=== PATIENT | female | born 1990 | race Hispanic/Latino ===

== ENCOUNTER 2020-11-18 12:23 | Observation (INO) | payer OTHER, SELFPAY ==
[2020-11-18] VITALS (40 sets, daily range): BP systolic 131–185; BP diastolic 70–117; PULSE 69–114; RESP 13–25; TEMP 35.5–37; O2SAT 74–100; BMI 23.0
--- NOTE | 2020-11-18 13:01 | ECG_ITS ---
Measurements Intervals [place] Rate: 69 P: 43 IN: 144 QRS: 42 QRSD: 77 T: 46 QT: 373 QTc: 402 Interpretive Statements SINUS RHYTHM BASELINE ARTIFACT- I, II, III NORMAL ECG Electronically Signed On 11-19-2020 13:15:03 CDT by Neil Rangel D.O.
[2020-11-18 13:18] LABS: INR 0.9; Prothrombin Time 12.1 Seconds (11.1-14.7)
--- NOTE | 2020-11-18 13:19 | ED.RECABL ---
HPI - Recheck/Abnormal Lab/Rx General Chief Complaint: Recheck/Abnormal Lab/Rx <Nicolette Ash PA-C - Last Filed: 11/18/20 17:06> Stated Complaint: K+ 7.1 <Nicolette Ash PA-C - Last Filed: 11/18/20 17:06> Time Seen by Provider: 11/18/20 13:01 <DREA Franks Last Filed: 11/18/20 17:06> Source: patient <DREA Franks Last Filed: 11/18/20 17:06> Mode of arrival: ambulatory <DREA Franks Last Filed: 11/18/20 17:06> Limitations: no limitations <DREA Franks Last Filed: 11/18/20 17:06> History of Present Illness HPI narrative: This is a 30-year-old female that presents to the emergency department for hyperkalemia. Reports she has history of ESRD and is on hemodialysis. She does dialysis Monday, and Saturdays. At dialysis yesterday she had a routine blood draw. This morning she was called and told her potassium was high and to go to the ER. She is not symptomatic with this. She did not take her blood pressure medication this morning. <DREA Franks Last Filed: 11/18/20 17:06> Related Data Home Medications: Home Medications Medication Instructions Recorded Confirmed amlodipine 5 mg PO DAILY 11/18/20 11/18/20 ferrous gluconate 324 mg PO DAILY 11/18/20 11/18/20 sevelamer carbonate 800 mg PO TIDWM 11/18/20 11/18/20 <DREA Franks Last Filed: 11/18/20 17:06> Allergies/Adverse Reactions: Allergies Allergy/AdvReac Type Severity Reaction Status Date / Time NSAIDS (Non-Steroidal Allergy Unknown Unknown Verified 11/18/20 13:03 Anti-Inflamma Penicillins Allergy Unknown RASH Verified 11/18/20 13:03 <DREA Franks Last Filed: 11/18/20 17:06> Review of Systems Review of Systems: CONSTITUTIONAL: Denies fever CARDIOVASCULAR: Denies chest pain, palpitations RESPIRATORY: Denies dyspnea. GASTROINTESTINAL: Denies abdominal pain, vomiting <Nicolette Ash PA-C - Last Filed: 11/18/20 17:06> All systems reviewed & are unremarkable except as noted in HPI and below <Nicolette Ash PA-C - Last Filed: 11/18/20 17:06> PMFSH Past Medical History Medical History: Medical History (Updated 11/18/20 @ 21:00 by Deborah Frye NP) ESRD on hemodialysis Monday History of end stage renal disease History of hypertension History of lupus HTN (hypertension), malignant Lupus <Nicolette Ash PA-C - Last Filed: 11/18/20 17:06> Surgical History Surgical History: Surgical History (Updated 11/18/20 @ 21:00 by Deborah Frye NP) S/P dialysis catheter insertion The patient has a peritoneal catheter and a temper catheter right upper chest. Nonfunctioning AV fistula to the right upper arm <Nicolette Ash PA-C - Last Filed: 11/18/20 17:06> Family History Family History: Family History Grandparent Diabetes mellitus <Nicolette Ash PA-C - Last Filed: 11/18/20 17:06> Social History Social History: Social History (Updated 11/18/20 @ 21:02 by Deborah Frye NP) Social History: The patient has 2 children. She currently lives with her boyfriend's mom. She lives with her boyfriend who works. The patient is unable to work at this time. The patient does not have a durable power trade mark attorney for healthcare. The patient is lifelong nonsmoker. She does not use any marijuana or illicit drugs. Code status full code Smoking status: Never smoker Alcohol intake: never Substance use: never Spiritual care concerns: No <DREA Franks Last Filed: 11/18/20 17:06> Exam Narrative: GENERAL: Well-appearing, well-nourished, and in no acute distress. HEAD: Normocephalic, atraumatic. EYES: EOMI. ENT: Mucous membranes moist. CHEST: Clear to auscultation. No respiratory distress. No wheezes rales or rhonchi HEART: Regular rate and rhythm. No murmur heard. Normal peripheral pulses.
[2020-11-18 13:26] LABS: Basophils Percent Auto 0.3 % (0.2-1.2); Eosinophils Absolute Auto 0.1 K/mm3 (0-0.3); Eosinophils Percent Auto 1.3 % (0-4.4); Hematocrit 21.7 % (37.0-47.0); Hemoglobin 7.1 g/dL (12.0-15.0); Immature Granulocyte Absolute 0.02 K/mm3 (0.00-0.031); Immature Granulocyte Percent A 0.3 % (0-0.5); Lymphocytes Absolute Auto 0.71 K/mm3 (0.9-3.2); Lymphocytes Percent Auto 11.9 % (18.3-44.2); Mean Corpuscular HGB Conc 32.7 g/dl (32-36); Mean Corpuscular Hemoglobin 28.7 pg (26-34); Mean Corpuscular Volume 87.9 fl (80-100); Mean Platelet Volume 9.1 fl (7.4-10.4); Monocytes Absolute Auto 0.6 K/mm3 (0.1-0.6); Monocytes Percent Auto 9.4 % (2.6-8.5); Neutrophils Absolute Auto 4.6 K/mm3 (1.3-6.7); Neutrophils Percent Auto 76.8 % (45.5-73.1); Platelet Count Result 231 k/mm3 (150-375); Red Blood Count 2.47 M/mm3 (4.2-5.4); Red Cell Distribution Width 13.2 % (11.5-14.5)
[2020-11-18 13:43] LABS: Alanine Aminotransferase 18 U/L (4-35); Albumin Level 4.6 g/dL (3.5-5.1); Alkaline Phosphatase 92 U/L (38-126); Anion Gap 19 mmol/L (8-16); Aspartate Amino Transferase 21 U/L (14-36); Bilirubin,Total 0.4 mg/dL (0.2-1.3); Blood Urea Nitrogen 115 mg/dL (7-17); Carbon Dioxide 20 mmol/L (22-30); Chloride 97 mmol/L (98-107); Glucose 85 mg/dL (65-110); Potassium 7.4 mmol/L (3.4-5.0); Sodium 136 mmol/L (137-145)
[2020-11-18 13:53] LABS: Estimated CRCL calculation 3 ml/min; Estimated Glomerular Filt Rate 2
[2020-11-18] MEDS: SODIUM BICARBONATE 8.4% 50 MEQ/50 ML SYRINGE IV PUSH (14:13)
[2020-11-18] MEDS: CALCIUM GLUCONATE 1,000 MG/10 ML VIAL 1000 MG IV PUSH (14:17)
[2020-11-18] MEDS: DEXTROSE 50% 25 GM/50 ML SYRINGE IV PUSH (14:19)
[2020-11-18] MEDS: INSULIN HUMAN REGULAR (*BKC) 100 UNITS/ML 10 UNITS IV PUSH (14:22)
[2020-11-18] MEDS: amLODIPine BESYLATE 5 MG TABLET PO (14:31)
--- NOTE | 2020-11-18 15:56 | PM.CNNEP ---
Assessment and Plan Assessment and plan (1) Anemia: Code(s): D64.9 - Anemia, unspecified Status: Acute (2) ESRD on hemodialysis: Code(s): N18.6 - End stage renal disease; Z99.2 - Dependence on renal dialysis Status: Chronic (3) Lupus: Code(s): M32.9 - Systemic lupus erythematosus, unspecified Status: Chronic (4) HTN (hypertension), malignant: Code(s): I10 - Essential (primary) hypertension Status: Chronic (5) Acute hyperkalemia: Code(s): E87.5 - Hyperkalemia Status: Acute (6) Non-adherence to medical treatment: Code(s): Z91.19 - Patient's noncompliance with other medical treatment and regimen Status: Inactive (7) Non-adherence to medical treatment: Code(s): Z91.19 - Patient's noncompliance with other medical treatment and regimen Status: Acute Assessment and Plan: young female of descent with esrd due to lupus- 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 She has remained severely non-compliant/ non-adherent only coming to 2-4 dialysis treatments per month which did not improve when she was allowed to come only twice a week bc of her multiple missing abscences. She showed up to dialysis yesterday and unfortunately her HD line was not working well - TPA was infused and labs were sent. the potassium level came back extremely high > 7 so she was sent to the ER. I had seen her earlier at the dialysis center yesterday and started her on Lokelma but noted yesterday and today that she has volume overload, is pale, and has skin nodules of hyperphosphatemia plan 1. HD TODAY- WILL RETRY TPA BUT PT MAY NEED NEW DIALYSIS ACCESS. AN ALTERNATIVE, SHE COULD HAVE A TRIAL AT PERITONEAL DIALYSIS BUT WITH HER NOT TRULY HAVING HER INTRA-ABDOMINAL CAVITY EPITHELIALIZED WITH CONTINUOUS PERITONEAL DIALYSIS AND JUST 1 TRAINIINAG EXCHANGE IT IS LIKELY THAT THE PD LINE DOESN'T WORK ALSO. 2. HD TODAY AND TOMORROW AND ALSO MONDAY. 3. TRANSFUSE NEEDED. 4. LONG D/W PT TO CONTROL POTASSIUM ADN PHOSPHORUS. 5. UNFORTUNATELY IT DOESN'T APPEAR THERE IS AN AVAILABLE SURGEON HERE AT [facility] WITH THE SURGICAL FAMILIARITY TO D/C HER PD LINE- WE HAVE NOT BEEN ABLE TO GET THIS ACCOMPLISHED AN OUTPATIENT. SHE SAW THE SURGICAL ARTS GROUP AT [facility] BUT ENDED UP BEING OUT OF THEIR NETWORK. History of Present Illness Reason for Consult Consult date: 11/24/20 Chief Complaint Chief complaint: hyperkalemia,esrd Review of Systems Review of Systems: weak and with some sob with lying flat and walking. diffuse puritis. weakness of legs. Nausea and metallic taste- all symptoms c/w uremia. [facility] Past Medical History Medical History (Updated 11/24/20 @ 04:23 by Heaven Andrews MD) ESRD on hemodialysis Monday History of end stage renal disease History of hypertension History of lupus HTN (hypertension), malignant Lupus Non-adherence to medical treatment Non-adherence to medical treatment Surgical History Surgical History (Updated 11/18/20 @ 21:00 by Deborah Frye NP) S/P dialysis catheter insertion The patient has a peritoneal catheter and a temper catheter right upper chest. Nonfunctioning AV fistula to the right upper arm Family History Family History Grandparent Diabetes mellitus Social History Social History (Updated 11/18/20 @ 21:02 by Deborah Frye NP) Social History: The patient has 2 children. She currently lives with her boyfriend's mom. She lives with her boyfriend who works. The patient is unable to work at this time. The patient does not have a durable power attorney general for healthcare. The patient is lifelong nonsmoker. She does not use any marijuana or illicit drugs. Code status full code Smoking status: Never smoker Alcohol intak
--- NOTE | 2020-11-18 17:25 | ADMGEN ---
This patient, Amelia Mcneill, was admitted to Intensive Care Unit-8. Patient/family oriented to hospital policies and general routines including ID bracelet, bed and alarms, visiting hours, pain management, procedures, bathroom and other care routines, personal items, smoking policy, room service/diet, and visiting hours. Information on how to activate the Rapid Response Team has been discussed. Patient/Family are encouraged to report perceived risks to care and to ask questions if they do not understand what they are told or what they should do.
[2020-11-18 17:49] LABS: Add Urine Microscopic? YES; Appearance Urine Clear (Clear); Bilirubin Urine Negative (Negative); Blood Urine Negative (Negative); Color Urine Colorless (Yellow); Glucose Urine UA 2+ mg/dL (Negative); Ketones Urine Negative (Negative); Leukocyte Esterase Ur Negative LEU/UL (Negative); Nitrate Urine Negative (Negative); Protein Urine 3+ mg/dL (Negative); RBC Urine 0-2 /hpf (0-2); Specific Grav Ur 1.008 (1.001-1.035); Squamous Epithelial Cell Urine Rare /hpf (Few); Urobilinogen Urine Negative mg/dL (<2.0); WBC Urine 0-3 /hpf
[2020-11-18 18:57] LABS: INR 1.1; Prothrombin Time 13.7 Seconds (11.1-14.7)
[2020-11-18 18:58] LABS: Partial Thromboplastin Time 33.3 SECONDS (22.3-36.8)
[2020-11-18] MEDS: IRON SUCROSE COMPLEX 100 MG in SODIUM CHLORIDE 0.9% IV 50 ML 220 MG IVPB (19:00)
[2020-11-18] MEDS: EPOETIN ALFA-EPBX 20,000 UNITS/ML VIAL 20000 UNITS IV PUSH (19:30)
[2020-11-18 20:11] LABS: Hepatitis B Surface Antigen Negative (Negative)
[2020-11-18 20:17] LABS: HAV RESULT Negative (Negative); Hepatitis B Core IgM Result Negative (Negative)
[2020-11-18 20:29] LABS: Hepatitis C Virus Antibody Negative (Negative)
[2020-11-18 20:35] LABS: Hepatitis B Surface Anti Res Positive
[2020-11-18] MEDS: hydrALAZINE HCL 20 MG/ML VIAL 10 MG IV PUSH (20:46)
--- NOTE | 2020-11-18 20:51 | PM.IMHP ---
H&P: HPI History of Present Illness Date/Time: 11/18/20 20:51 this is a 30-year-old female patient who has a history of end-stage renal disease secondary to her lupus. The patient tells me that she has been on dialysis for over a year now. She tried peritoneal dialysis but could not store the boxes of fluid at her house. The patient had a right AV fistula but he went bad. The patient now has a temporary dialysis catheter to her right upper chest. The patient tells me that she has dialysis scheduled Monday and Saturdays. However the patient has a 3-year-old at home is having difficulty finding a cleat thrower. The patient stated that a week ago she went to dialysis and then she went yesterday however about an hour into the dialysis her catheter failed her. The patient stated that they put something into her catheter and then waited a few minutes. However they still were not able to user catheter yesterday. She stated somebody from venous access was supposed to call her today but she did receive the phone call. The patient had a blood draw at dialysis yesterday and she was told to come to the emergency room because her potassium was high. She did not take her blood pressure medicine at this time and she is asymptomatic. The patient's potassium was noted to be 7.4. Sodium 136. Chloride 97. BUN 115 creatinine 18.9 with a GFR of 2. The patient stated that she had been on a renal transplant list but was kicked off due to her noncompliance with dialysis. Dr. Andrews is her geology teacher. I did talk to Dr. Andrews concerning the patient's potassium and difficulty with her catheter. I spoke with the hemodialysis nurse Francois several times concerning the patient. Francois was able to get 1 of the ports to work and was able to call a dialysis nurse to come in and do dialysis treatment. The patient was able to have the treatment completed. The patient has a peritoneal dialysis catheter intact and intact right upper chest dialysis catheter. She has a repeat renal function. The patient is being admitted to observation status on the date of service of 11/18/2020. Chief Complaint: Hyperkalemia Review of Systems Review of Systems: All systems reviewed & are unremarkable except as noted in HPI and below Constitutional: Constitutional: Reports as per HPI and Reports no additional constitutional complaints Eyes: Eyes: Reports as per HPI and Reports no additional eye complaints ENT: Reports system reviewed and no additional complaints, except as documented and Reports Normal hearing present Cardiovascular: Cardiovascular: Reports no additional cardiovascular complaints Respiratory: Respiratory: Reports no additional respiratory complaints and Reports no additional respiratory complaints Gastrointestinal: Gastrointestinal: Reports as per HPI and Reports no additional gastrointestinal complaints Musculoskeletal: Musculoskeletal: Reports no additional musculoskeletal complaints Integumentary/Breasts: Skin/Breast: Reports system reviewed and no additional complaints, except as docu and Reports as per HPI Neurologic: Reports system reviewed and no additional complaints, except as documented, Reports as per HPI and Reports Normal hearing present Psychiatric: Psychiatric: Reports no additional psychiatric complaints and Reports as per HPI Endocrine: Endocrine: Reports no additional endocrine complaints Hematologic/Lymphatic: Hematologic/Lymphatic: Reports no additional hematologic/lymphatic complaints Allergic/Immunologic: Allergic/Immunologic: Reports no additional allergic/immunologic complaints [facility] Past Medical History Medical History (Updated 11/18/20 @ 21:00 by Deborah Frye NP) ESRD on hemodialysis Monday History of end stage renal disease History of hypertension History of lupus HTN (hypertension), malignant Lupus Surgical History Surgical History (Updated 11/18/20 @ 21:00 by Deborah Frye NP) S/P dialys
[2020-11-18 23:10] LABS: Albumin Level 4.2 g/dL (3.5-5.1); Anion Gap 12 mmol/L (8-16); Blood Urea Nitrogen 37 mg/dL (7-17); Calcium 8.7 mg/dL (8.4-10.2); Carbon Dioxide 28 mmol/L (22-30); Chloride 97 mmol/L (98-107); Estimated CRCL calculation 8 ml/min; Estimated Glomerular Filt Rate 7; Glucose 157 mg/dL (65-110); Phosphorus 5.2 mg/dL (2.5-4.5); Potassium 4.1 mmol/L (3.4-5.0); Sodium 137 mmol/L (137-145)
[2020-11-18] MEDS: ACETAMINOPHEN 325 MG TABLET 650 MG PO (23:52)
[2020-11-18] MEDS: SALINE 0.65% NAS SOLN 44 ML BTL 1 SPRAY NASAL (23:53)
[2020-11-19] VITALS (28 sets, daily range): BP systolic 117–168; BP diastolic 55–116; PULSE 70–98; RESP 15–21; TEMP 35.5–37.1; O2SAT 98–100
[2020-11-19 04:58] LABS: Basophils Percent Auto 0.3 % (0.2-1.2); Eosinophils Absolute Auto 0.1 K/mm3 (0-0.3); Eosinophils Percent Auto 0.7 % (0-4.4); Hematocrit 21.1 % (37.0-47.0); Immature Granulocyte Absolute 0.02 K/mm3 (0.00-0.031); Immature Granulocyte Percent A 0.3 % (0-0.5); Lymphocytes Absolute Auto 0.84 K/mm3 (0.9-3.2); Lymphocytes Percent Auto 12.1 % (18.3-44.2); Mean Corpuscular HGB Conc 32.2 g/dl (32-36); Mean Corpuscular Hemoglobin 28.5 pg (26-34); Mean Corpuscular Volume 88.3 fl (80-100); Mean Platelet Volume 8.9 fl (7.4-10.4); Monocytes Absolute Auto 0.8 K/mm3 (0.1-0.6); Monocytes Percent Auto 10.8 % (2.6-8.5); Neutrophils Absolute Auto 5.2 K/mm3 (1.3-6.7); Neutrophils Percent Auto 75.8 % (45.5-73.1); Platelet Count Result 205 k/mm3 (150-375); Red Blood Count 2.39 M/mm3 (4.2-5.4); Red Cell Distribution Width 12.9 % (11.5-14.5); White Blood Count 6.9 K/mm3 (4.5-10.0)
[2020-11-19 05:07] LABS: Hemoglobin 6.8 g/dL (12.0-15.0)
[2020-11-19 05:21] LABS: Alanine Aminotransferase 17 U/L (4-35); Albumin Level 4.1 g/dL (3.5-5.1); Alkaline Phosphatase 78 U/L (38-126); Anion Gap 13 mmol/L (8-16); Aspartate Amino Transferase 21 U/L (14-36); Bilirubin,Total 0.3 mg/dL (0.2-1.3); Blood Urea Nitrogen 39 mg/dL (7-17); CRP 1.3 mg/dL (<1.0); Carbon Dioxide 27 mmol/L (22-30); Chloride 99 mmol/L (98-107); Estimated CRCL calculation 7 ml/min; Estimated Glomerular Filt Rate 5; Glucose 86 mg/dL (65-110); Lipase 143 U/L (23-300); Magnesium 1.9 mg/dL (1.6-2.3); Potassium 4.9 mmol/L (3.4-5.0); Sodium 139 mmol/L (137-145)
[2020-11-19] MEDS: FERROUS GLUCONATE 324 MG TABLET PO (08:32)
[2020-11-19] MEDS: SEVELAMER CARBONATE 800 MG TABLET PO ×2 (08:32→16:22)
[2020-11-19] MEDS: amLODIPine BESYLATE 5 MG TABLET PO (08:32)
[2020-11-19] MEDS: SODIUM CHLORIDE 0.9% IV 1,000 ML 100 ML IV CONT (11:00)
--- NOTE | 2020-11-19 11:29 | PM.IMPN ---
Progress Note: A&P Assessment and Plan (1) Acute hyperkalemia: Code(s): E87.5 - Hyperkalemia Status: Acute Assessment and Plan: Patient sent to the emergency room for hyperkalemia. Potassium here was 7.4. The patient underwent emergent dialysis and her dialysis catheter to the right upper chest was working although the patient may still need to follow-up with vascular access. She has a nonfunctioning AV fistula to the right upper arm. Recheck potassium was normal. Patient states that her mother is now available baby-sitting which will hopefully improve her compliance with dialysis. Continue renal dialysis diet. (2) ESRD on hemodialysis: Code(s): N18.6 - End stage renal disease; Z99.2 - Dependence on renal dialysis Status: Chronic Assessment and Plan: Patient is noncompliant at times due to her lack of access for a sitter. She has a peritoneal dialysis catheter in place but no abdominal pain to suggest peritonitis. Currently undergoing dialysis through right upper chest tunneled catheter. There was problems with the function of the catheter but this has been treated and is now improved. She received dialysis yesterday and will receive dialysis again today. This will put her back on schedule. Appreciate Nephrology input. (3) Anemia: Code(s): D64.9 - Anemia, unspecified Status: Acute Assessment and Plan: Hemoglobin 7.1 on admission. Repeat hemoglobin this morning is 6.8. Some of this is chronic related to her ESRD and lupus. Unclear if there is an acute component of blood loss but no evidence of acute blood loss clinically. Will check iron studies, ect. Check stool guaiac. Check bedside test. Transfusion has been ordered. Add pepcid (4) Lupus: Code(s): M32.9 - Systemic lupus erythematosus, unspecified Status: Chronic Assessment and Plan: Patient has a history of lupus which is probably related to her anemia, renal failure and may be the joint pain. She is not currently on treatment for her lupus at this time. Will defer to her rheumatology for further treatment. (5) HTN (hypertension), benign: Code(s): I10 - Essential (primary) hypertension Status: Acute Assessment and Plan: Patient's blood pressure was reviewed on 11/19 Blood pressure was elevated admission probably fluid overload. Blood pressure has improved with dialysis. CP could be related to elevated BP, fluid overload and/or from the catheter. Will moniotr for recurrence of CP. Will continue current medications with Norvasc. (6) DVT prophylaxis: Code(s): Z29.9 - Encounter for prophylactic measures, unspecified Status: Acute Assessment and Plan: SCDs in light of the anemia Subjective Date/time seen: 11/19/20 11:29 Interval history: 30yo female with SLE and ESRD here for hyperkalemia. Patient states she was hospitalized at [facility] recently was discharged on November 07. She normally gets dialysis Monday, and Monday however she was unable to do dialysis for the last week because of baby-sitting issues. She did go for dialysis on November 17 but they had difficulty with dialysis due to catheter problems. She has a peritoneal dialysis catheter in place but could not continue with dialysis in this way. She had a fistula placed but that is now nonfunctioning so currently she has a temporary dialysis catheter right upper chest. She still makes urine. She states that her mother is now available to help with baby-sitting which will help allow her to be more compliant. She was noted to be hyperkalemic and was sent to the emergency room here for this reason. She denies any palpitations or chest pain. She did have chest pain last week that was tight but feels it may have been related to the catheter the right upper chest. She denies any calf pain or pedal edema. She got tested for COVID last week and was nega
[2020-11-19 12:34] LABS: Lactate Dehydrogenase 467 U/L (313-618)
[2020-11-19 13:07] LABS: Iron 193 ug/dL (37-170)
[2020-11-19 13:16] LABS: Percent Iron Saturation 99 % (20-50)
[2020-11-19 13:17] LABS: SPREG INTERNAL CONTROL Positive; Serum Qual hCG Negative
[2020-11-19 13:36] LABS: Folic Acid 7.1 ng/mL (2.76->20)
--- NOTE | 2020-11-19 15:44 | PM.DS ---
DS: Admitting Diagnosis Discharge Date 11/19/20 Admitting Diagnosis Hyperkalemia DS: Discharge Diagnosis Discharge Diagnosis (1) Acute hyperkalemia: Code(s): E87.5 - Hyperkalemia Status: Acute Assessment and Plan: Patient sent to the emergency room for hyperkalemia. Potassium here was 7.4. The patient underwent emergent dialysis and her dialysis catheter to the right upper chest was working although the patient may still need to follow-up with vascular access. She has a nonfunctioning AV fistula to the right upper arm. Recheck potassium was normal. Patient states that her mother is now available for baby-sitting which will hopefully improve her compliance with dialysis. Continue renal dialysis diet. Appreciate Nephrology input. (2) ESRD on hemodialysis: Code(s): N18.6 - End stage renal disease; Z99.2 - Dependence on renal dialysis Status: Chronic Assessment and Plan: Patient is noncompliant at times due to her lack of access for a partner integration planner. She has a peritoneal dialysis catheter in place but no abdominal pain to suggest peritonitis. Currently undergoing dialysis through right upper chest tunneled catheter. There was problems with the function of the catheter but this has been treated and is now improved. She received dialysis yesterday and again today. This has put her back on schedule. Appreciate Nephrology input. Patient voices understanding that she will need dialysis on Monday11/21/2020 (3) Anemia: Code(s): D64.9 - Anemia, unspecified Status: Acute Assessment and Plan: Hemoglobin 7.1 on admission. Repeat hemoglobin this morning is 6.8. Some of this is chronic related to her ESRD and lupus. Unclear if there is an acute component of blood loss but no evidence of acute blood loss clinically. B12/Folate normal. Iron studies noted and felt to be lab error ; this was drawn with dialysis. We did stop her iron. test negative. Transfusion was ordered with dialysis. We added pepcid (4) Lupus: Code(s): M32.9 - Systemic lupus erythematosus, unspecified Status: Chronic Assessment and Plan: Patient has a history of lupus which is probably related to her anemia, renal failure and may be the joint pain. She is not currently on treatment for her lupus at this time. Will defer to her rheumatology for further treatment. (5) HTN (hypertension), benign: Code(s): I10 - Essential (primary) hypertension Status: Acute Assessment and Plan: Patient's blood pressure was monitored closely. Blood pressure was elevated on admission probably fluid overload. Blood pressure has improved with dialysis. Chest pain before admission could be related to elevated BP, fluid overload and/or from the catheter. No recurrence of chest pain here. We continued current medications with Norvasc. DS: Summary Hospital Course Reason for hospitalization: 30yo female with SLE and ESRD here for hyperkalemia. Please see H&P for details. Hospital Course: Please see above for details of hospital course. Status at Discharge Cognitive/behavioral status at discharge: Stable Time Spent with Patient Time attestation: Total time spent providing and/or coordinating discharge services: 35 minutes Time spent: Greater than 30 minutes Exam Narrative: AF 98.6 146/69 71 16 99 % ra Gen - NARD Chest - CTA bilaterally, nml RR. Right upper chest tunneled catheter with dressing that is clean and dry CV - RRR S1/S2; Tele showing no signifincat dysrhythmias Abd - Soft, NT/ND, Positive BS. PD catheter site clean/dry/intact Ext - No pedal edema. Negative Janice's; no cords. 2+ DP bilaterally. No active synovitis to the small joints of the hands or wrists. Neuro - Alert and oriented. Nonfocal exam. Psych - Nml mood and affect Skin - Warm and dry DS: Data Data Completed and Pending Labs on day of discharge: Labs from last 24 hours 10
[2020-11-19] MEDS: FAMOTIDINE 20 MG TABLET PO (16:22)
--- NOTE | 2020-11-19 17:56 | PC.NURSE ---
Patient discharged to home. Oriented x3, no complaints of chest pain/shortness of breath at discharge. Prescriptions transmitted to pharmacy.
[2020-11-21 19:35] LABS: Hepatitis B Core Ab Total Nonreactive (Nonreactive)
--- NOTE | 2020-11-26 12:36 | PC.NURSE ---
HEP B core is non-reactive.
== END 2020-11-19 18:00 | disposition home or self-care (01) ==
LOC: ANHED 15:47 → ANHICU 16:13
PROVIDERS: Emergency Medicine; Nurse Practitioner; Physician Assistant; Admitting Provider Internal Medicine; Emergency Provider Emergency Medicine; PCP Internal Medicine Nephrology; Visit Provider Internal Medicine
DX: E87.5 Hyperkalemia (principal); N18.6 End stage renal disease; Z99.2 Dependence on renal dialysis; M32.9 Systemic lupus erythematosus, unspecified; I12.0 Hypertensive chronic kidney disease with stage 5 chronic kidney disease or end stage renal disease; D64.9 Anemia, unspecified; Z91.19 Patient's noncompliance with other medical treatment and regimen; D63.1 Anemia in chronic kidney disease; R07.89 Other chest pain
CPT/HCPCS: 36415; 36430; 80053; 80069; 80074; 81001; 82607; 82728; 82746; 83540; 83550; 83615; 83690; 83735; 84443; 84703; 85025; 85610; 85730; 86140; 86704; 86706; 86850; 86900; 86901; 86920; 87340; 93005; 96374; 96375; 99285; A9270; G0257; G0378; G0379; J0360; J0610; J1756; J1815; J7030; J7040; P9016; Q5105

== ENCOUNTER 2021-01-24 20:43 | Observation (INO) | payer OTHER, SELFPAY ==
--- NOTE | ~2021-01-24 | XR_ITS ---
XR chest 2V 01/25/2021 15:18 Indication: Pleural effusions. Procedure: AP and lateral views of the chest Comparison: 01/24/2021 Findings: Bibasilar airspace disease, compatible with pneumonia. Small pleural effusions. Cardiomegal y. Large bore central venous catheter tips in the SVC near the cavoatrial junction. No pneumothorax. Impression: 1: No significant change to bibasilar airspace disease which may represent pneumonia and/or atelectas is. 2: Small pleural effusions. Reviewed, dictated and finalized at location A. BILITY ADVOCATE Impression: 1: No significant change to bibasilar airspace disease which may represent pneu monia and/or atelectasis. 2: Small pleural effusions.
--- NOTE | ~2021-01-24 | CT_ITS ---
EXAMINATION: CTA chest PE protocol DATE: 01/25/2021 01:36 INDICATION: Shortness of breath. TECHNIQUE: Computed tomography angiography (CTA) of the chest was performed with 100 mL Omnipaque-350 intravenous contrast timed to evaluate the pulmonary arteries. Coronal maximum intensity projection 3D-reconstructions were created by the technologist. Automated exposure control and iterative reconst ruction technique were employed. The dose-length product was 172.23 mGy-cm. COMPARISON: Chest 2 views 01/24/2021 FINDINGS: There are moderate-sized right and small left pleural effusions. There are peripheral airsp priti opacities in all lobes predominantly involving the mid and lower lung zones, consistent with atel ectasis. Cardiomegaly is noted. There is a large pericardial effusion. A right internal jugular centr al venous catheter is seen with tip in the right atrium. The bones are unremarkable. IMPRESSION: 1. Moderate-sized right and small left pleural effusions. 2. Large pericardial effusion. 3. Cardiomegaly. Reviewed, dictated and finalized at location A. ING MACHINE OPERATOR
--- NOTE | ~2021-01-24 | XR_ITS ---
XR chest 2V 01/26/2021 14:01 Indication: Pleural effusions. Volume overload. Procedure: 2 view chest Comparison: 01/25/2021 Findings: Cardiomegaly. Small pleural effusions, right greater than left. Bibasilar airspace disease which may represent pneumonia and/or atelectasis. Large bore central venous catheter tip in the SVC. No pneumothorax. Impression: 1: Bibasilar airspace disease which may represent pneumonia and/or atelectasis. 2: Small pleural effusions, right greater than left. Reviewed, dictated and finalized at location A. OR DATA WAREHOUSE DEVELOPER Impression: 1: Bibasilar airspace disease which may represent pneumonia and/or atelectasis. 2: Small pleural effusions, right greater than left.
--- NOTE | ~2021-01-24 | XR_ITS ---
EXAMINATION: XR chest 2V DATE: 01/24/2021 22:32 INDICATION: Shortness of breath. TECHNIQUE: Frontal and lateral views of the chest were obtained. COMPARISON: Chest CT 01/25/2021 FINDINGS: There are airspace opacities in the mid and lower lung zones. There are moderate-sized righ t and small left pleural effusions. No pneumothorax. There is enlargement of the cardiac silhouette. A right internal jugular central venous catheter is seen with tip in the right atrium. IMPRESSION: 1. Moderate-sized right and small left pleural effusions. 2. Airspace opacities in the mid and lower lung zones, likely atelectasis. 3. Enlargement of the cardiac silhouette, likely a combination of cardiomegaly and pericardial effusi on as seen by CT. Reviewed, dictated and finalized at location A. MA PROCESSING CENTRIFUGE OPERATOR IMPRESSION: 1. Moderate-sized right and small left pleural effusions. 2. Airspace opacities in the mid and lower lung zones, likely atelectasis. 3. Enlargement of the cardiac silhouette, likely a combination of cardiomegaly and pericardial effusion as seen by CT.
[2021-01-24 20:44] VITALS: BP 206/122; PULSE 90; RESP 20; TEMP 36.4; O2SAT 97
--- NOTE | 2021-01-24 22:17 | ECG_ITS ---
Measurements Intervals [place] Rate: 77 P: 59 SC: 148 QRS: 53 QRSD: 81 T: 91 QT: 388 QTc: 439 Interpretive Statements SINUS RHYTHM BORDERLINE ST-T WAVE ABNORMALITY- ANTEROLAT/HIGH LAT LEADS BASELINE ARTIFACT- I, II, III, AVR, AVL, AVF BORDERLINE ECG Electronically Signed On 01-25-2021 6:18:29 WOOL TAMPER by Neil Rangel D.O.
--- NOTE | 2021-01-24 22:34 | ED.GENADULT ---
HPI - General Adult General Chief complaint: Shortness of Breath/Dyspnea <Fabiana Murcia MD - Last Filed: 01/25/21 16:22> Stated complaint: I cant breathe, and Im on dialysis <Fabiana Murcia MD - Last Filed: 01/25/21 16:22> Time Seen by Provider: 01/24/21 21:56 <Fabiana Murcia MD - Last Filed: 01/25/21 16:22> Source: patient and RN notes reviewed <Fabiana Mrucia MD - Last Filed: 01/25/21 16:22> History of Present Illness HPI narrative: Patient is a 30 y/o female complaining moderate to severe SOB for last 1-2 days. She states that laying down worsens her SOB. She also has a cough and some chest pain. She denies any fever. She states that she get dialysis Tuesdays and . She did not miss any treatment. <Fabiana Murcia MD - Last Filed: 01/25/21 16:22> Related Data Home medications: Home Medications Medication Instructions Recorded Confirmed amlodipine 5 mg PO DAILY 11/18/20 11/18/20 ferrous gluconate 324 mg PO DAILY 11/18/20 11/18/20 sevelamer carbonate 800 mg PO TIDWM 11/18/20 11/18/20 <Fabiana Murcia MD - Last Filed: 01/25/21 16:22> Allergies/adverse reactions: Allergies Allergy/AdvReac Type Severity Reaction Status Date / Time NSAIDS (Non-Steroidal Allergy Unknown Unknown Verified 01/24/21 20:49 Anti-Inflamma Penicillins Allergy Unknown RASH Verified 01/24/21 20:49 <Fabiana Murcia MD - Last Filed: 01/25/21 16:22> Review of Systems Constitutional: Constitutional: Denies chills, Denies fever(s), Denies headache(s) and Denies weakness <Fabiana Murcia MD - Last Filed: 01/25/21 16:22> Eyes: Eyes: Denies blurry vision <Fabiana Murcia MD - Last Filed: 01/25/21 16:22> ENT: Denies headache(s) and Denies neck pain <Fabiana Murcia MD - Last Filed: 01/25/21 16:22> Cardiovascular: Cardiovascular: Reports chest pain and Reports dyspnea <Fabiana Murcia MD - Last Filed: 01/25/21 16:22> Respiratory: Respiratory: Reports cough and Reports dyspnea <Fabiana Murcia MD - Last Filed: 01/25/21 16:22> Gastrointestinal: Gastrointestinal: Denies abdominal pain, Denies diarrhea, Denies nausea and Denies vomiting <Fabiana Murcia MD - Last Filed: 01/25/21 16:22> Genitourinary: Genitourinary: Denies hematuria and Denies dysuria <Fabiana Murcia MD - Last Filed: 01/25/21 16:22> Musculoskeletal: Musculoskeletal: Denies back pain and Denies neck pain <Fabiana Murcia MD - Last Filed: 01/25/21 16:22> Neurologic: Denies headache(s) and Denies weakness <Fabiana Murcia MD - Last Filed: 01/25/21 16:22> ON LICENSE OF [facility] Past Medical History Medical History: Medical History (Updated 01/25/21 @ 15:08 by Heaven Andrews MD) ESRD on hemodialysis Monday History of end stage renal disease History of hypertension History of lupus HTN (hypertension), malignant Lupus Non-adherence to medical treatment Non-adherence to medical treatment Pericardial effusion Pleural cavity effusion <Fabiana Murcia MD - Last Filed: 01/25/21 16:22> Surgical History Surgical History: Surgical History S/P dialysis catheter insertion The patient has a peritoneal catheter and a temper catheter right upper chest. Nonfunctioning AV fistula to the right upper arm <Fabiana Murcia MD - Last Filed: 01/25/21 16:22> Family History Family History: Family History Grandparent Diabetes mellitus <Fabiana Murcia MD - Last Filed: 01/25/21 16:22> Social History Social History: Social History Social History: The patient has 2 children. She currently lives with her boyfriend's mom. She lives with her boyfriend who works. The patient is unable to work at this time. The patient does not have a durable power litigation attorney for healthcare. The patient is lifelong nonsmoker. She does not use any marijuana or illicit drugs. Code
[2021-01-24 23:05] LABS: Basophils Absolute Auto 0.1 K/mm3 (0.0-0.1); Basophils Percent Auto 0.4 % (0.2-1.2); Eosinophils Absolute Auto 0.1 K/mm3 (0-0.3); Eosinophils Percent Auto 0.9 % (0-4.4); Hematocrit 25.5 % (37.0-47.0); Hemoglobin 8.3 g/dL (12.0-15.0); Immature Granulocyte Absolute 0.06 K/mm3 (0.00-0.031); Immature Granulocyte Percent A 0.5 % (0-0.5); Lymphocytes Absolute Auto 0.63 K/mm3 (0.9-3.2); Mean Corpuscular HGB Conc 32.5 g/dl (32-36); Mean Corpuscular Hemoglobin 30.9 pg (26-34); Mean Corpuscular Volume 94.8 fl (80-100); Monocytes Absolute Auto 0.6 K/mm3 (0.1-0.6); Monocytes Percent Auto 4.6 % (2.6-8.5); Neutrophils Absolute Auto 11.3 K/mm3 (1.3-6.7); Neutrophils Percent Auto 88.6 % (45.5-73.1); Platelet Count Result 353 k/mm3 (150-375); Red Blood Count 2.69 M/mm3 (4.2-5.4); Red Cell Distribution Width 15.7 % (11.5-14.5); White Blood Count 12.7 K/mm3 (4.5-10.0)
[2021-01-24 23:17] LABS: D Dimer 1.82 ug/mL (<0.48)
[2021-01-24 23:44] VITALS: BP 190/127; PULSE 79; RESP 18; O2SAT 98
[2021-01-24] MEDS: cloNIDine HCL 0.2 MG TABLET PO (23:48)
[2021-01-25] VITALS (52 sets, daily range): BP systolic 136–182; BP diastolic 78–131; PULSE 66–90; RESP 16–31; TEMP 36.1–36.7; O2SAT 91–98; BMI 24.4
[2021-01-25] LABS: Add Urine Microscopic? YES; Appearance Urine Cloudy (Clear); Bacteria Urine Trace /hpf; Bilirubin Urine Negative (Negative); Blood Urine Negative (Negative); Color Urine Yellow (Yellow); Glucose Urine UA 2+ mg/dL (Negative); Ketones Urine Negative (Negative); Leukocyte Esterase Ur 1+ LEU/UL (Negative); Mucus Urine Rare /lpf; Nitrate Urine Negative (Negative); Protein Urine 3+ mg/dL (Negative); RBC Urine 0-2 /hpf (0-2); Specific Grav Ur 1.009 (1.001-1.035); Squamous Epithelial Cell Urine Many /hpf (Few); Urobilinogen Urine Negative mg/dL (<2.0)
--- NOTE | 2021-01-25 | ECHO_ITS ---
Patient Info Name: Amelia Mcneill Age: 30 years : 1990 Gender: Female Ht: 62 in Wt: 135 lbs BSA: 1.65 m2 HR: 75 bpm BP: 153 / 90 mmHg Heart Rhythm: Sinus Rhythm Technical Quality: Good Exam Date: 01/25/2021 1:37 PM Exam Location: [facility] Patient Status: Outpatient Admit Date: 01/25/2021 Staff Ordering Physician: Stiven Augustin MD Hand Violin Maker: Deidra Wang RDCS Attending Provider: Stiven Augustin MD Exam Type: CA echo doppler color flow Study Info Indications - PERICARDIAL EFFUSION Complete two-dimensional, color flow and Doppler transthoracic echocardiogram is performed. Summary 1. Complete two-dimensional, color flow and Doppler transthoracic echocardiogram is performed. 2. Normal left ventricular size with moderate concentric hypertrophy. Good systolic function of all segments with ejection fraction of 60-65%. No segmental wall motion abnormalities. Grade 2 diastolic dysfunction is present. 3. Left atrial chamber dimension is mildly enlarged. 4. No pulmonary hypertension, estimated pulmonary arterial systolic pressure is 35 mmHg. 5. There is a moderate-sized pericardial effusion present, which is mostly posterior, measuring 1.4-2.4 cm posteriorly and 0.8cm anteriorly. There is some right atrial collapse as well as questionable right ventricular collapse suggesting the patient may have early tamponade physiology. Thre is not much variation in the mitral valve inflow velocity to support this, however. 6. No significant valve disease. 7. Possible left pleural effusion. 8. Normal sinus rhythm. 9. Consider a follow up Echo at a later date if clinically indicated. Left Ventricle Left ventricular chamber dimension is normal. Left ventricular systolic function is normal, estimated at 60-65%. There is moderately increased left ventricular wall thickness. Left ventricular septal wall motion is normal. The left ventricular diastolic function is grade II diastolic dysfunction. Right Ventricle Right ventricular chamber dimension is normal. Right ventricular systolic function is normal. Left Atria Left atrial chamber dimension is mildly enlarged. Right Atria Right atrial chamber dimension is normal. Aortic Valve The aortic valve is trileaflet. There is no aortic valve sclerosis. There is no aortic valve stenosis. There is no aortic valve regurgitation. Pulmonic Valve The pulmonic valve is normal. There is no pulmonic valve stenosis. There is no pulmonic regurgitation. Mitral Valve The mitral valve has normal leaflets. There is no mitral valve stenosis. There is trace mitral valve regurgitation. Tricuspid Valve The tricuspid valve leaflets are normal. There is no significant tricuspid valve stenosis. There is trace tricuspid valve regurgitation. No pulmonary hypertension, estimated pulmonary arterial systolic pressure is 35 mmHg. Pericardium/Pleural The pericardium appears normal. There is moderate pericardial effusion. Inferior Vena Cava Normal inferior vena cava with >50% collapse upon inspiration consistent with normal right atrial pressure, 10 mmHg. Aorta The aortic root size at the sinus of Valsalva is normal. The prox ascending aorta size is normal. Left Ventricular Outflow Tract Name Value Normal LVOT 2D --
[2021-01-25 01:00] LABS: Alanine Aminotransferase 24 U/L (4-35); Albumin Level 4.6 g/dL (3.5-5.1); Alkaline Phosphatase 121 U/L (38-126); Anion Gap 21 mmol/L (8-16); Aspartate Amino Transferase 28 U/L (14-36); Bilirubin,Total 0.6 mg/dL (0.2-1.3); Blood Urea Nitrogen 89 mg/dL (7-17); Calcium 9.2 mg/dL (8.4-10.2); Carbon Dioxide 16 mmol/L (22-30); Chloride 93 mmol/L (98-107); Estimated CRCL calculation 3 ml/min; Estimated Glomerular Filt Rate 2; Glucose 88 mg/dL (65-110); Potassium 6.9 mmol/L (3.4-5.0); Sodium 130 mmol/L (137-145)
[2021-01-25 01:06] LABS: NT Pro B Type Natriuretic Pept > 35000 pg/mL (5-100); Troponin I < 0.012 ng/mL (0.000-0.034)
[2021-01-25] MEDS: CALCIUM GLUCONATE 1,000 MG/10 ML VIAL 1000 MG IV PUSH (01:11)
[2021-01-25] MEDS: SODIUM POLYSTYRENE SULFONONATE 15 GM/60 ML BTL PO (01:11)
[2021-01-25 01:37] LABS: Troponin I < 0.012 ng/mL (0.000-0.034)
[2021-01-25 05:27] LABS: Potassium 7.1 mmol/L (3.4-5.0)
[2021-01-25 05:37] LABS: Troponin I 0.013 ng/mL (0.000-0.034)
[2021-01-25] MEDS: INSULIN HUMAN REGULAR (*BKC) 100 UNITS/ML 10 UNITS IV PUSH (05:46)
[2021-01-25] MEDS: DEXTROSE 50% 25 GM/50 ML SYRINGE IV PUSH (05:46)
[2021-01-25] MEDS: SODIUM BICARBONATE 8.4% 50 MEQ/50 ML SYRINGE IV PUSH (05:46)
--- NOTE | 2021-01-25 06:36 | PM.IMHP ---
H&P: HPI History of Present Illness Date/Time: 01/25/21 06:36 Chief Complaint: Shortness of breath Narrative: This is a 30-year-old female who presents to the ED with worsening shortness of breath over the past few days. She stated that she has end-stage renal disease and on dialysis 2 times per week with Dr. Andrews. See [facility] due to not having a package worker. She went to go for a session on Monday however she was not schedule and hence was sent back. See started feeling short of breath which has progressively gotten worse over the past few days and hence came to the ER for evaluation. She states that shortness of breath worsens when she lays flat there is also associated cough and shortness of breath but denies any fever. She also states her legs are swollen all the way up to her stomach area. She also has a peritoneal dialysis catheter in place was not been removed yet. She has been however not using that and on hemodialysis since past. . She has underlying history of lupus which is the reason for her end-stage renal disease. Review of Systems Review of Systems: - CONSTITUTIONAL: Denies weight loss, fever and chills. - HEENT: Denies changes in vision and hearing - RESPIRATORY: Reports SOB and cough. - CV: Denies palpitations and CP. - GI: Denies abdominal pain, nausea, vomiting and diarrhea. - : Denies dysuria and urinary frequency. - MSK: Denies myalgia and joint pain. - SKIN: Denies rash and pruritus. - NEUROLOGICAL: Denies headache and syncope. - PSYCHIATRIC: Denies recent changes in mood. Denies anxiety and depression. All systems reviewed & are unremarkable except as noted in HPI and below Constitutional: Constitutional: Reports fatigue and Reports weakness Neurologic: Reports weakness Endocrine: Endocrine: Reports fatigue PMFSH Past Medical History Medical History ESRD on hemodialysis Monday History of end stage renal disease History of hypertension History of lupus HTN (hypertension), malignant Lupus Non-adherence to medical treatment Non-adherence to medical treatment Surgical History Surgical History S/P dialysis catheter insertion The patient has a peritoneal catheter and a temper catheter right upper chest. Nonfunctioning AV fistula to the right upper arm Family History Family History Grandparent Diabetes mellitus Social History Social History Social History: The patient has 2 children. She currently lives with her boyfriend's mom. She lives with her boyfriend who works. The patient is unable to work at this time. The patient does not have a durable power attorney recruiter for healthcare. The patient is lifelong nonsmoker. She does not use any marijuana or illicit drugs. Code status full code Smoking status: Never smoker Alcohol intake: never Substance use: never Spiritual care concerns: No Meds Home Medications and Allergies Home Medications Medication Instructions Recorded Confirmed Type amlodipine 5 mg PO DAILY 11/18/20 11/18/20 History ferrous gluconate 324 mg PO DAILY 11/18/20 11/18/20 History sevelamer carbonate 800 mg PO TIDWM 11/18/20 11/18/20 History famotidine 20 mg PO Q12HR #60 tablet 11/19/20 Rx Allergies Allergy/AdvReac Type Severity Reaction Status Date / Time NSAIDS (Non-Steroidal Allergy Unknown Unknown Verified 01/24/21 20:49 Anti-Inflamma Penicillins Allergy Unknown RASH Verified 01/24/21 20:49 Vital Signs Vital Signs - 24 hr 01/24/21 20:44 01/24/21 23:44 01/25/21 00:58 Temperature 97.5 F L Pulse Rate 90 79 74 Respiratory Rate 20 18 18 Blood Pressure 206/122 H 190/127 H 182/113 H Pulse Oximetry 97 98 98 01/25/21 03:05 01/25/21 05:20 Temperature Pulse Rate 85 86 Res
[2021-01-25 08:31] LABS: Glucose Point of Care 103 mg/dl (65-105)
[2021-01-25] MEDS: SEVELAMER CARBONATE 800 MG TABLET PO ×3 (08:45→18:08)
[2021-01-25] MEDS: amLODIPine BESYLATE 5 MG TABLET 10 MG PO (08:46)
[2021-01-25] MEDS: HEPARIN SODIUM 5,000 UNITS/ML VIAL 5000 UNITS SUB-Q ×2 (08:47→21:06)
[2021-01-25] MEDS: FAMOTIDINE 20 MG TABLET PO ×2 (08:47→21:06)
[2021-01-25] MEDS: FERROUS GLUCONATE 324 MG TABLET PO (08:47)
--- NOTE | 2021-01-25 09:33 | PC.NURSE ---
Dialysis called, report given to AMANDA Cruz no further questions or concerns
[2021-01-25 09:55] LABS: Potassium 7.1 mmol/L (3.4-5.0)
--- NOTE | 2021-01-25 11:23 | PC.NURSE ---
Pt is still in dialysis
--- NOTE | 2021-01-25 12:57 | PM.IMPN ---
Progress Note: A&P Assessment and Plan (1) Fluid overload: Qualifiers: Hypervolemia type: unspecified Qualified Code(s): E87.70 - Fluid overload, unspecified Code(s): E87.70 - Fluid overload, unspecified Status: Acute Assessment and Plan: Patient has a history of ESRD dependent on renal replacement therapy; she has been noncompliant with dialysis.Acute fluid overload secondary to missed hemodialysis. Chest x-ray with small left and moderate right pleural effusion with compressive atelectasis associated large pericardial effusion measuring 2 cm thick cardiomegaly noted no PE on CTA study. Currently patient undergoing dialysis. Plan for chest x-ray post dialysis. (2) Acute hyperkalemia: Code(s): E87.5 - Hyperkalemia Status: Acute Assessment and Plan: Severe hyperkalemia with potassium at 7. Patient was managed with temporizing measures. Currently undergoing dialysis with a 2K bath. 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 Patient on dialysis Monday. Patient receives dialysis through right chest PermCath. Patient has been non compliant to her prescribed treatment. She has missed dialysis last week and presents with significant hyperkalemia. Currently undergoing dialysis: 3 hrs, 2 K bath, Qb 400, Qd 800, target 3 liters ultrafiltration. Stable run; procedure wi well tolerated without issues. (4) Non-adherence to medical treatment: Code(s): Z91.19 - Patient's noncompliance with other medical treatment and regimen Status: Acute Assessment and Plan: This has been an ongoing issue. Patient is young, with no significant comorbidities include be a candidate for transplantation. Discussed with the patient. Hopefully the prospect of compliance opening the door to transplantation will be enough to convince her to become more compliant. (5) HTN (hypertension), benign: Code(s): I10 - Essential (primary) hypertension Status: Acute Assessment and Plan: Blood pressure uncontrolled hypertension at presentation at to 206/122. Improving with blood pressure management. Currently Blood pressure moderately controlled 141/93. Elevated blood pressure measurement likely secondary to fluid overload and expected to improve with regular dialysis. (6) Anemia: Code(s): D64.9 - Anemia, unspecified Status: Acute Assessment and Plan: Anemia normochromic normocytic with hemoglobin stable at 8.3. Patient is already on oral iron supplementation. Send iron stores. Give Epogen during dialysis. (7) Lupus: Code(s): M32.9 - Systemic lupus erythematosus, unspecified Status: Chronic Assessment and Plan: Home medication reviewed. No specific treatment. Likely quiescent. (8) Hyponatremia: Code(s): E87.1 - Hypo-osmolality and hyponatremia Status: Acute Assessment and Plan: Likely reflecting water retention. (9) Metabolic acidosis: Code(s): E87.2 - Acidosis Status: Acute Assessment and Plan: Likely improving with renal replacement therapy. No intervention Additional Plan # DVT prophylaxis heparin subQ # code status full code Subjective Date/time seen: 01/25/21 12:57 S: Patient was seen and examined during hemodialysis. She had a stable run without reported issues. Review of Systems Review of Systems: All systems reviewed & are unremarkable except as noted in HPI and below Constitutional: Constitutional: Reports fatigue and Reports weakness Neurologic: Reports weakness Endocrine: Endocrine: Reports fatigue Exam Narrative: GENERAL: The patient is well developed, not in acute distress. Temperature 97.8? F, pulse 78, respiration 20, pulse ox 95% on room air, blood pressure 141/93 HEENT: Nonicteric scle
--- NOTE | 2021-01-25 13:20 | PC.NURSE ---
Received report from Nancy RN,pt tolerated dialysis well,BP 140/80's, removed 3L's Nancy states a BMP should be scheduled for after dialysis, called phlebotomy
--- NOTE | 2021-01-25 13:54 | PC.NURSE ---
Echo and phlebotomy at bedside, pt presents talking and wide awake
[2021-01-25 14:19] LABS: Anion Gap 14 mmol/L (8-16); Blood Urea Nitrogen 28 mg/dL (7-17); Calcium 9.3 mg/dL (8.4-10.2); Carbon Dioxide 25 mmol/L (22-30); Chloride 94 mmol/L (98-107); Estimated CRCL calculation 8 ml/min; Estimated Glomerular Filt Rate 6; Glucose 85 mg/dL (65-110); Potassium 4.1 mmol/L (3.4-5.0); Sodium 133 mmol/L (137-145)
--- NOTE | 2021-01-25 15:02 | PM.CNNEP ---
Assessment and Plan Assessment and plan (1) Metabolic acidosis: Code(s): E87.2 - Acidosis Status: Acute (2) Hyponatremia: Code(s): E87.1 - Hypo-osmolality and hyponatremia Status: Acute (3) Fluid overload: Qualifiers: Hypervolemia type: unspecified Qualified Code(s): E87.70 - Fluid overload, unspecified Code(s): E87.70 - Fluid overload, unspecified Status: Acute (4) Acute hyperkalemia: Code(s): E87.5 - Hyperkalemia Status: Acute (5) End stage renal disease on dialysis: Code(s): N18.6 - End stage renal disease; Z99.2 - Dependence on renal dialysis Status: Acute (6) Non-adherence to medical treatment: Code(s): Z91.19 - Patient's noncompliance with other medical treatment and regimen Status: Acute (7) HTN (hypertension), benign: Code(s): I10 - Essential (primary) hypertension Status: Acute (8) Lupus: Code(s): M32.9 - Systemic lupus erythematosus, unspecified Status: Chronic (9) Pleural cavity effusion: Code(s): J90 - Pleural effusion, not elsewhere classified Status: Acute (10) Pericardial effusion: Code(s): I31.3 - Pericardial effusion (noninflammatory) Status: Acute Assessment and Plan: 1. daily dialysis for 3 days 2. pt failed to qualify for home therapy with potassium binding agent 3. change outpt schedule back to 3x/week which is what she needs 4. gamal has been consouled repeatedly about multiple risks of medical non-compliance with hemodialysis including the risks of - pt does not seem to care and has done nothing to try to change her situation. her prognosis remains poor and her risk of is moderate to high to despite her age due to her severe medical non-adherence. History of Present Illness Reason for Consult Consult date: 01/25/21 Chief Complaint Chief complaint: ESRD, Fluid Overload, Hyperkalemia History of Present Illness Narrative: young 30 yo female with ESRD presumed due to lupus and HTN comes in continuing to be highly noncompliant with outpatient hemodialysis after failing home peritoneal dialysis due to severe non-compliance where he only attended 1 outpatient training program and then refused to come back. In fact she still has her peritoneal dialysis catheter in place having missed several appts to have it removed. She is only dialyzing twice a week MONDAY AND MONDAY due to issues with transportation and child welfare counselor as well as severe denial. Now presents having only came last week to one dialysis session with shortness of breath and was found to be volume overloaded and hyperkalemic. Review of Systems Respiratory: Respiratory: Reports chest congestion, Reports dyspnea and Reports dyspnea on exertion PMFSH Past Medical History Medical History (Updated 01/25/21 @ 15:08 by Heaven Andrews MD) ESRD on hemodialysis Monday History of end stage renal disease History of hypertension History of lupus HTN (hypertension), malignant Lupus Non-adherence to medical treatment Non-adherence to medical treatment Pericardial effusion Pleural cavity effusion Surgical History Surgical History S/P dialysis catheter insertion The patient has a peritoneal catheter and a temper catheter right upper chest. Nonfunctioning AV fistula to the right upper arm Family History Family History Grandparent Diabetes mellitus Social History Social History Social History: The patient has 2 children. She currently lives with her boyfriend's mom. She lives with her boyfriend who works. The patient is unable to work at this time. The patient does not have a durable power insurance defense attorney for healthcare. The patient is lifelong nonsmoker. She does not use any marijuana or illicit drugs.
--- NOTE | 2021-01-25 15:07 | PC.NURSE ---
Attempted to call Dr. Kendall
--- NOTE | 2021-01-25 15:30 | PC.NURSE ---
1529-spoke with dr. conklin, she stated okay to downgrade from imu status to med/surg status, and will dialyze tomorrow.
--- NOTE | 2021-01-25 16:35 | PC.NURSE ---
Attempted to call report, RN states she will give call back
--- NOTE | 2021-01-25 17:30 | ADMGEN ---
This patient, Amelia Mcneill, was admitted to 2 Medical Room 260-01. Patient/family oriented to hospital policies and general routines including ID bracelet, bed and alarms, visiting hours, pain management, procedures, bathroom and other care routines, personal items, smoking policy, room service/diet, and visiting hours. Information on how to activate the Rapid Response Team has been discussed. Patient/Family are encouraged to report perceived risks to care and to ask questions if they do not understand what they are told or what they should do.
[2021-01-26] VITALS (18 sets, daily range): BP systolic 124–177; BP diastolic 62–108; PULSE 71–90; RESP 16–20; TEMP 35.5–37; O2SAT 94–96
[2021-01-26 05:23] LABS: Basophils Percent Auto 0.6 % (0.2-1.2); Eosinophils Absolute Auto 0.1 K/mm3 (0-0.3); Eosinophils Percent Auto 2.1 % (0-4.4); Hematocrit 23.6 % (37.0-47.0); Hemoglobin 7.4 g/dL (12.0-15.0); Immature Granulocyte Absolute 0.03 K/mm3 (0.00-0.031); Immature Granulocyte Percent A 0.5 % (0-0.5); Lymphocytes Absolute Auto 0.99 K/mm3 (0.9-3.2); Lymphocytes Percent Auto 15.1 % (18.3-44.2); Mean Corpuscular HGB Conc 31.4 g/dl (32-36); Mean Corpuscular Hemoglobin 30.3 pg (26-34); Mean Corpuscular Volume 96.7 fl (80-100); Mean Platelet Volume 9.7 fl (7.4-10.4); Monocytes Absolute Auto 0.7 K/mm3 (0.1-0.6); Monocytes Percent Auto 10.5 % (2.6-8.5); Neutrophils Absolute Auto 4.7 K/mm3 (1.3-6.7); Neutrophils Percent Auto 71.2 % (45.5-73.1); Platelet Count Result 279 k/mm3 (150-375); Red Blood Count 2.44 M/mm3 (4.2-5.4); Red Cell Distribution Width 15.3 % (11.5-14.5); White Blood Count 6.6 K/mm3 (4.5-10.0)
[2021-01-26 06:03] LABS: Alanine Aminotransferase 19 U/L (4-35); Albumin Level 3.9 g/dL (3.5-5.1); Alkaline Phosphatase 95 U/L (38-126); Anion Gap 12 mmol/L (8-16); Aspartate Amino Transferase 21 U/L (14-36); Bilirubin,Total 0.4 mg/dL (0.2-1.3); Blood Urea Nitrogen 39 mg/dL (7-17); Calcium 9.3 mg/dL (8.4-10.2); Carbon Dioxide 25 mmol/L (22-30); Chloride 96 mmol/L (98-107); Estimated CRCL calculation 5 ml/min; Estimated Glomerular Filt Rate 4; Glucose 87 mg/dL (65-110); Potassium 5.7 mmol/L (3.4-5.0); Sodium 133 mmol/L (137-145)
[2021-01-26] MEDS: amLODIPine BESYLATE 5 MG TABLET 10 MG PO (08:01)
[2021-01-26] MEDS: FERROUS GLUCONATE 324 MG TABLET PO (08:01)
[2021-01-26] MEDS: SEVELAMER CARBONATE 800 MG TABLET PO ×3 (08:01→17:11)
[2021-01-26] MEDS: FAMOTIDINE 20 MG TABLET PO ×2 (08:01→20:37)
[2021-01-26] MEDS: HEPARIN SODIUM 5,000 UNITS/ML VIAL 5000 UNITS SUB-Q ×2 (08:10→20:38)
[2021-01-26] MEDS: EPOETIN ALFA-EPBX 10,000 UNITS/ML VIAL 10000 UNITS IV PUSH (09:44)
[2021-01-26] MEDS: HEPARIN SODIUM 1,000 UNITS/ML VIAL 1000 UNITS IV PUSH ×2 (09:45→09:46)
[2021-01-26] MEDS: SODIUM CHLORIDE 0.9% IV 1,000 ML 999 ML IV CONT (09:46)
[2021-01-26 10:12] LABS: Iron 128 ug/dL (37-170)
--- NOTE | 2021-01-26 10:16 | PM.PNNEP ---
Progress Note: A&P Assessment and Plan (1) Pericardial effusion: Code(s): I31.3 - Pericardial effusion (noninflammatory) Status: Acute (2) Metabolic acidosis: Code(s): E87.2 - Acidosis Status: Acute (3) Hyponatremia: Code(s): E87.1 - Hypo-osmolality and hyponatremia Status: Acute (4) Fluid overload: Qualifiers: Hypervolemia type: unspecified Qualified Code(s): E87.70 - Fluid overload, unspecified Code(s): E87.70 - Fluid overload, unspecified Status: Acute (5) Acute hyperkalemia: Code(s): E87.5 - Hyperkalemia Status: Acute (6) End stage renal disease on dialysis: Code(s): N18.6 - End stage renal disease; Z99.2 - Dependence on renal dialysis Status: Acute (7) Non-adherence to medical treatment: Code(s): Z91.19 - Patient's noncompliance with other medical treatment and regimen Status: Acute (8) HTN (hypertension), benign: Code(s): I10 - Essential (primary) hypertension Status: Acute (9) Anemia: Code(s): D64.9 - Anemia, unspecified Status: Acute (10) ESRD on hemodialysis: Code(s): N18.6 - End stage renal disease; Z99.2 - Dependence on renal dialysis Status: Chronic (11) Lupus: Code(s): M32.9 - Systemic lupus erythematosus, unspecified Status: Chronic Additional Plan 1. hd again today -change outpt schedule to 3x week - TTS 2. cont fluid overload. 3. check chest xray 2 view 4. update echo. 5. consult DR. FERCHO DRISCOLL FOR PD CATHETER REMOVAL - HOPEFULLY THIS ADMISSION. 6. NEED TO CLARIFY WITH RADIOLOGY IF PT HAS PULMONARY EMBOLISM OR NOT- CTA DOES NOT MENTION. Subjective Date/time seen: 01/26/21 06:56am pt seen- less sob and legs improved. still coughing some= unproductive. Unfortunately when pt was hositalized at [facility] about 2-3 weeks ago b/c of a non-functioning dialysis line they did not get to removing her peritoneal dialysis. Exam Const: General: cooperative Resp: Effort & Inspection: normal respiratory effort Auscultation: rales and diminished lung sounds Cardio: Rhythm: regular rhythm Heart sounds: S1 normal heart sound present and S2 normal heart sound present Peripheral pulses: Peripheral pulses 2+ throughout GI: Inspection: normal to inspection Percussion: Yes normal to percussion Auscultation: normal bowel sounds Objective Data Vital Signs Vital Signs: Vital Signs - 24 hr 01/25/21 11:00 01/25/21 12:00 01/25/21 12:15 Temperature Pulse Rate 76 77 77 Respiratory Rate Blood Pressure 153/91 H 145/83 H 141/87 H Pulse Oximetry 01/25/21 12:30 01/25/21 12:45 01/25/21 13:00 Temperature Pulse Rate 76 78 77 Respiratory Rate Blood Pressure 142/79 H 141/93 H 146/86 H Pulse Oximetry 01/25/21 13:05 01/25/21 13:15 01/25/21 13:49 Temperature 36.6 C Pulse Rate 79 78 Respiratory Rate 20 Blood Pressure 142/84 H 139/83 Pulse Oximetry 95 01/25/21 13:50 01/25/21 13:54 01/25/21 14:01 Temperature Pulse Rate 78 72 Respiratory Rate 18 20 Blood Pressure 153/90 H 153/90 H 140/90 Pulse Oximetry 95 96 95 01/25/21 15:18 01/25/21 15:30 01/25/21 15:45 Temperature Pulse Rate Respiratory Rate Blood Pressure Pulse Oximetry 93 95 94 01/25/21 15:46 01/25/21 16:00 01/25/21 16:01 Temperature Pulse Rate Respiratory Rate Blood Pressure 136/92 H 141/89 H Pulse Oximetry 97 93 96 01/25/21 16:15 01/25/21 16:30 01/25/21 16:45 Temperature Pulse Rate Respiratory Rate Blood Pressure Pulse Oximetry 95 95 94 01/25/21 17:00 01/25/21 17:06 01/25/21 17:25 Temperature 36.5 C Pulse Rate 90 78 Respiratory Rate 20 16 Blood Pressure 140/78 150/95 H Pulse Oximetry 91 95 97 01/25/21 20:01 01/26/21 05:47 01/26/21 08:25 Temperature 36.7 C 36.4 C 36.8 C Pulse Rate 86 78 80 Respiratory Rate 16 16 16 Blood Pressure 154/96 H 159/90 H 177/103 H Pul
[2021-01-26 10:18] LABS: Transferrin 167 mg/dL (206-381)
[2021-01-26 10:21] LABS: Percent Iron Saturation 54 % (20-50)
--- NOTE | 2021-01-26 12:22 | PM.IMPN ---
Progress Note: A&P Assessment and Plan (1) Fluid overload: Qualifiers: Hypervolemia type: unspecified Qualified Code(s): E87.70 - Fluid overload, unspecified Code(s): E87.70 - Fluid overload, unspecified Status: Acute Assessment and Plan: Patient has a history of ESRD dependent on renal replacement therapy; she has been previously on peritoneal dialysis and had to be transition to hemodialysis. Unfortunately, she has been noncompliant with dialysis, due to social factors.Acute fluid overload secondary to missed hemodialysis. Chest x-ray with small left and moderate right pleural effusion with compressive atelectasis associated large pericardial effusion measuring 2 cm thick cardiomegaly noted no PE on CTA study. Currently patient undergoing 2nd day of dialysis treatment. Plan dialysis tomorrow. (2) Acute hyperkalemia: Code(s): E87.5 - Hyperkalemia Status: Acute Assessment and Plan: Severe hyperkalemia with potassium at 7. Potassium improved down to 4.1 post dialysis. Rebound dialysis today at 5.7. Potassium expected to improve after dialysis today with a 2K bath. 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 Patient on dialysis Monday. Patient receives dialysis through right chest PermCath. Patient has been non compliant to her prescribed treatment. She has missed dialysis last week and presents with significant hyperkalemia. Currently undergoing dialysis: 3 hrs, 2 K bath, Qb 400, Qd 800, target 3 liters ultrafiltration. Stable run; procedure wi well tolerated without issues. (4) Non-adherence to medical treatment: Code(s): Z91.19 - Patient's noncompliance with other medical treatment and regimen Status: Acute Assessment and Plan: This has been an ongoing issue. 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 Patient is young, with no significant comorbidities include be a candidate for transplantation. Discussed with the patient. Hopefully improved compliance may open her door to a kidney transplant in the future. (5) HTN (hypertension), benign: Code(s): I10 - Essential (primary) hypertension Status: Acute Assessment and Plan: Blood pressure uncontrolled hypertension at presentation at to 206/122. Improving with blood pressure management. Currently Blood pressure moderately controlled 141/93. Elevated blood pressure measurement likely secondary to fluid overload and expected to improve with regular dialysis. (6) Anemia: Code(s): D64.9 - Anemia, unspecified Status: Acute Assessment and Plan: Anemia normochromic normocytic with hemoglobin stable at 7.4. Patient is already on oral iron supplementation. Iron stores were appropriately replenish. Continue Epogen per Nephrology. (7) Lupus: Code(s): M32.9 - Systemic lupus erythematosus, unspecified Status: Chronic Assessment and Plan: Home medication reviewed. No specific treatment. Likely quiescent. (8) Hyponatremia: Code(s): E87.1 - Hypo-osmolality and hyponatremia Status: Acute Assessment and Plan: Likely reflecting water retention. He improving with a serum sodium of 133. (9) Metabolic acidosis: Code(s): E87.2 - Acidosis Status: Acute Assessment and Plan: Likely improving with renal replacement therapy. No intervention Additional Plan # DVT prophylaxis heparin subQ # code status full code Subjective Date/time seen: 01/26/21 12:00. S: Patient was examined at the bedside. She had a stippled run of dialysis without reported issues. She denies any active complaints. Review of Systems Review of Systems: All systems reviewed & are unremarkable except as not
--- NOTE | 2021-01-26 12:52 | PM.CNGS ---
Assessment and Plan Assessment and plan (1) ESRD on hemodialysis: Code(s): N18.6 - End stage renal disease; Z99.2 - Dependence on renal dialysis Status: Chronic Assessment and Plan: patient receiving hemodialysis and not using peritoneal dialysis catheter. (2) Peritoneal dialysis catheter in place: Code(s): Z99.2 - Dependence on renal dialysis Status: Chronic Assessment and Plan: Nephrology requests this be removed. Scheduled to be removed around noon tomorrow 01/27/2021. Procedure risks and benefits were discussed. She agrees to go ahead. (3) Non-adherence to medical treatment: Code(s): Z91.19 - Patient's noncompliance with other medical treatment and regimen Status: Chronic Assessment and Plan: Per Nephrology, patient non compliant with teaching and never learned or participated in use of peritoneal dialysis catheter. Non compliant with other treatments for end-stage renal disease as well. Catheter at risk for infection and agree with removal. History of Present Illness Consult details Consult date: 01/27/21 Reason for consult: other ( remove peritoneal dialysis catheter) Requesting physician: Heaven Andrews MD Narrative: patient is a 30-year-old woman who undergoes hemodialysis. She had a peritoneal dialysis catheter placed but it has not been used in a long time. Her manpower development manager has recommended having this removed. Review of Systems Review of Systems: All systems reviewed & are unremarkable except as noted in HPI and below Constitutional: Constitutional: Denies chills, Reports fatigue, Denies fever(s), Reports weakness and Reports weight gain PMFSH Past Medical History Medical History ESRD on hemodialysis Monday History of end stage renal disease History of hypertension History of lupus HTN (hypertension), malignant Lupus Non-adherence to medical treatment Non-adherence to medical treatment Pericardial effusion Pleural cavity effusion Surgical History Surgical History S/P dialysis catheter insertion The patient has a peritoneal catheter and a temper catheter right upper chest. Nonfunctioning AV fistula to the right upper arm Family History Family History Grandparent Diabetes mellitus Social History Social History Social History: The patient has 2 children. She currently lives with her boyfriend's mom. She lives with her boyfriend who works. The patient is unable to work at this time. The patient does not have a durable power ip technology transactions attorney for healthcare. The patient is lifelong nonsmoker. She does not use any marijuana or illicit drugs. Code status full code Smoking status: Never smoker Alcohol intake: never Substance use: never Spiritual care concerns: No Meds Home Medications and Allergies Home Medications Medication Instructions Recorded Confirmed Type amlodipine 5 mg PO DAILY 11/18/20 01/25/21 History ferrous gluconate 324 mg PO DAILY 11/18/20 01/25/21 History sevelamer carbonate 800 mg PO TIDWM 11/18/20 01/25/21 History Allergies Allergy/AdvReac Type Severity Reaction Status Date / Time NSAIDS (Non-Steroidal Allergy Unknown Unknown Verified 01/24/21 20:49 Anti-Inflamma Penicillins Allergy Unknown RASH Verified 01/24/21 20:49 Vital Signs Vital Signs - 24 hr 01/25/21 13:00 01/25/21 13:05 01/25/21 13:15 Temperature 36.6 C Pulse Rate 77 79 78 Respiratory Rate 20 Blood Pressure 146/86 H 142/84 H 139/83 Pulse Oximetry 01/25/21 13:49 01/25/21 13:50 01/25/21 13:54 Temperature Pulse Rate 78 Respiratory Rate 18 Blood Pressure 153/90 H 153/90 H Pulse Oximetry 95 95 96 01/25/21 14:01 01/25/21 15:18 01/25/21 15:30 Temperature Pulse Ra
[2021-01-27] VITALS (28 sets, daily range): BP systolic 109–200; BP diastolic 75–118; PULSE 77–102; RESP 15–23; TEMP 35.5–37.3; O2SAT 94–100
[2021-01-27] MEDS: hydrALAZINE HCL 20 MG/ML VIAL 10 MG IV PUSH (00:31)
--- NOTE | 2021-01-27 05:28 | PM.PNNEP ---
Progress Note: A&P Assessment and Plan (1) Peritoneal dialysis catheter in place: Code(s): Z99.2 - Dependence on renal dialysis Status: Chronic (2) Pericardial effusion: Code(s): I31.3 - Pericardial effusion (noninflammatory) Status: Acute (3) Pleural cavity effusion: Code(s): J90 - Pleural effusion, not elsewhere classified Status: Acute (4) Metabolic acidosis: Code(s): E87.2 - Acidosis Status: Acute (5) Hyponatremia: Code(s): E87.1 - Hypo-osmolality and hyponatremia Status: Acute (6) Fluid overload: Qualifiers: Hypervolemia type: unspecified Qualified Code(s): E87.70 - Fluid overload, unspecified Code(s): E87.70 - Fluid overload, unspecified Status: Acute (7) Acute hyperkalemia: Code(s): E87.5 - Hyperkalemia Status: Acute (8) End stage renal disease on dialysis: Code(s): N18.6 - End stage renal disease; Z99.2 - Dependence on renal dialysis Status: Acute (9) Anemia: Code(s): D64.9 - Anemia, unspecified Status: Acute (10) ESRD on hemodialysis: Code(s): N18.6 - End stage renal disease; Z99.2 - Dependence on renal dialysis Status: Chronic (11) Lupus: Code(s): M32.9 - Systemic lupus erythematosus, unspecified Status: Chronic (12) HTN (hypertension), malignant: Code(s): I10 - Essential (primary) hypertension Status: Chronic (13) Acute hyperkalemia: Code(s): E87.5 - Hyperkalemia Status: Acute Additional Plan 1. PD LINE REMOVAL TODAY 2. NO DIALYSIS PLANNED FOR TODAY- 3. D/W PT LONG-TERM SHE MUST BE TTS- 3X/WEEK- SHE ISN'T GETTING ENOUGH FLUID REMOVED WITH TWICE A WEEK B/C OF SEVERE MEDICAL NON-ADHERENCE AND B/C SHE MAY BE EXPERIENCING SOME FURTHER LOSS OF HER RESIDUAL KIDNEY FUNCTION. 4. PT 'S INSURANCE REFUSED TO COVER [facility]- SHE JUST NEEDS TO COME TO DIALYSIS. 5. POST PD LINE REMOVAL SHE SHOULD BE ABLE TO GO HOME. Subjective Date/time seen: 01/27/21 05:28 no sig change. TO HAVE PD CATHETER REMOVED TODAY. Objective Data Vital Signs Vital Signs: Vital Signs - 24 hr 01/26/21 05:47 01/26/21 08:25 01/26/21 08:35 Temperature 36.4 C 36.8 C Pulse Rate 78 80 85 Respiratory Rate 16 16 Blood Pressure 159/90 H 177/103 H 161/100 H Pulse Oximetry 94 01/26/21 08:50 01/26/21 09:05 01/26/21 09:20 Temperature Pulse Rate 79 83 85 Respiratory Rate Blood Pressure 167/96 H 151/100 H 153/96 H Pulse Oximetry 01/26/21 09:35 01/26/21 09:50 01/26/21 10:05 Temperature Pulse Rate 89 86 72 Respiratory Rate Blood Pressure 151/91 H 149/90 H 154/87 H Pulse Oximetry 01/26/21 10:20 01/26/21 10:35 01/26/21 10:50 Temperature Pulse Rate 80 87 90 Respiratory Rate Blood Pressure 162/92 H 154/62 H 147/108 H Pulse Oximetry 01/26/21 11:05 01/26/21 11:20 01/26/21 11:36 Temperature Pulse Rate 90 84 71 Respiratory Rate Blood Pressure 148/88 H 137/84 124/74 Pulse Oximetry 01/26/21 11:51 01/26/21 21:04 01/26/21 21:29 Temperature 36.7 C 36.4 C L Pulse Rate 86 84 Respiratory Rate 16 20 Blood Pressure 147/82 H 160/98 H 150/98 H Pulse Oximetry 96 01/27/21 00:29 01/27/21 02:03 01/27/21 04:59 Temperature 36.8 C 36.6 C Pulse Rate 78 87 Respiratory Rate 18 18 Blood Pressure 167/103 H 164/98 H 161/86 H Pulse Oximetry 95 98 Intake/Output Intake/Output: Intake & Output 01/24/21 01/25/21 01/26/21 01/27/21 23:59 23:59 23:59 23:59 Intake Total 1690 0 Output Total 3000 3100 100 Balance -3000 -1410 -100 Meds/Results Medications: Active Medications Generic Name Dose Route Start Last Admin Trade Name Freq PRN Reason Stop Dose Admin Amlodipine Besylate 10 mg 01/25/21 09:00 01/26/21 08:01 Amlodipine Besylate 5 Mg Tablet PO 10 mg QAM LUISITO Administration Famotidine 20 mg 01/25/21 09:00 01/26/21 20:37 Famotidine 20 Mg Tablet PO 20 mg
[2021-01-27 08:51] LABS: Anion Gap 11 mmol/L (8-16); Blood Urea Nitrogen 27 mg/dL (7-17); Calcium 10.4 mg/dL (8.4-10.2); Carbon Dioxide 26 mmol/L (22-30); Chloride 98 mmol/L (98-107); Estimated CRCL calculation 7 ml/min; Estimated Glomerular Filt Rate 5; Glucose 93 mg/dL (65-110); Potassium 4.7 mmol/L (3.4-5.0); Sodium 135 mmol/L (137-145)
--- NOTE | 2021-01-27 09:00 | PC.NURSE ---
To dialysis per bed , IV RFA. Report given to Isra PATEL.
[2021-01-27] MEDS: amLODIPine BESYLATE 5 MG TABLET 10 MG PO (09:01)
--- NOTE | 2021-01-27 10:12 | PM.IMPN ---
Progress Note: A&P Assessment and Plan (1) Fluid overload: Qualifiers: Hypervolemia type: unspecified Qualified Code(s): E87.70 - Fluid overload, unspecified Code(s): E87.70 - Fluid overload, unspecified Status: Acute Assessment and Plan: Patient with a history of ESRD, on hemodialysis after failing peritoneal dialysis noncompliant due to social issues presenting with pericardial effusion. Patient was scheduled for daily dialysis for 3 days. She had a stable run today without issues which is her 3rd day of dialysis. Plan for removal of PD catheter removal today. Access a right PermCath.Hd 3 hrs, 2 K bath, Qb 400, Qd 800 UF 3 liters. (2) Acute hyperkalemia: Code(s): E87.5 - Hyperkalemia Status: Acute Assessment and Plan: Severe hyperkalemia with potassium at 7 at presentation. Potassium improved down to 4.7 prior to dialysis today. 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 Patient on dialysis Monday. Patient receives dialysis through right chest PermCath. Patient has been non compliant to her prescribed treatment. She has missed dialysis last week and presents with significant hyperkalemia. Currently undergoing dialysis: 3 hrs, 2 K bath, Qb 400, Qd 800, target 3 liters ultrafiltration. Stable run; procedure was well tolerated without issues. (4) Non-adherence to medical treatment: Code(s): Z91.19 - Patient's noncompliance with other medical treatment and regimen Status: Chronic Assessment and Plan: This has been an ongoing issue. 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 Patient is young, with no significant comorbidities include be a candidate for transplantation. Discussed with the patient. Hopefully improved compliance may open the doors to a kidney transplant in the future. (5) HTN (hypertension), benign: Code(s): I10 - Essential (primary) hypertension Status: Acute Assessment and Plan: Blood pressure uncontrolled hypertension at presentation at to 206/122. Improving with blood pressure management. Currently Blood pressure moderately controlled 132/84. Elevated blood pressure measurement likely secondary to fluid overload and expected to improve with regular dialysis. (6) Anemia: Code(s): D64.9 - Anemia, unspecified Status: Acute Assessment and Plan: Anemia normochromic normocytic with hemoglobin stable at 7.4. Patient is already on oral iron supplementation. Iron stores were appropriately replenish. Continue Epogen per Nephrology. (7) Lupus: Code(s): M32.9 - Systemic lupus erythematosus, unspecified Status: Chronic Assessment and Plan: Home medication reviewed. No specific treatment. Likely quiescent. (8) Hyponatremia: Code(s): E87.1 - Hypo-osmolality and hyponatremia Status: Acute Assessment and Plan: Likely reflecting water retention. He improving with a serum sodium of 135. (9) Metabolic acidosis: Code(s): E87.2 - Acidosis Status: Acute Assessment and Plan: Likely improving with renal replacement therapy. No intervention Additional Plan # DVT prophylaxis heparin subQ # code status full code Subjective Date/time seen: 01/27/21 13:12 S: Patient was examined during dialysis she had a stable run without reported issue. No complaints. Review of Systems Review of Systems: All systems reviewed & are unremarkable except as noted in HPI and below Constitutional: Constitutional: Reports fatigue and Reports weakness Eyes: Eyes: Reports as per HPI and Denies blurry vision ENT: Reports as per HPI and Denies sore throat Cardiovascular: Cardiovascular: Reports as per HPI, Denies chest pain a
[2021-01-27] MEDS: EPOETIN ALFA-EPBX 10,000 UNITS/ML VIAL 10000 UNITS IV PUSH (10:20)
--- NOTE | 2021-01-27 12:40 | PC.NURSE ---
PT returned from Dialysis Reprot received from Isra PATEL
--- NOTE | 2021-01-27 12:46 | PC.NURSE ---
To OR per bed, IV LFA. Report given to
--- NOTE | 2021-01-27 13:08 | WPDANESEPPF ---
Anes - Initial Pre Proc Eval Procedure: Operation Date: 01/27/21 13:00 Proposed Procedures p Removal Peritoneal Dialysis Catheter - Herb Zacarias MD Date/Time: 01/27/21 13:08 Surgeon: Stiven Augustin MD Pre Op Diagnosis: ESRD, Fluid Overload, Hyperkalemia Patient Data Age: 30 Gender: F Height: 1.57 m Weight: 55.2 kg Last Vital Signs Temp 36.8 C 01/27/21 12:28 Pulse 102 H 01/27/21 12:28 Resp 16 01/27/21 12:28 BP 152/75 H 01/27/21 12:28 Pulse Ox 98 01/27/21 04:59 Allergies Allergy/AdvReac Type Severity Reaction Status Date / Time NSAIDS (Non-Steroidal Allergy Unknown Unknown Verified 01/24/21 20:49 Anti-Inflamma Penicillins Allergy Unknown RASH Verified 01/24/21 20:49 Home Medications Medication Instructions Recorded Confirmed Type amlodipine 5 mg PO DAILY 11/18/20 01/25/21 History ferrous gluconate 324 mg PO DAILY 11/18/20 01/25/21 History sevelamer carbonate 800 mg PO TIDWM 11/18/20 01/25/21 History Laboratory Tests 01/27/21 07:54 Sodium 135 mmol/L L mmol/L (137-145) Potassium 4.7 mmol/L mmol/L (3.4-5.0) Chloride 98 mmol/L mmol/L (98-107) Carbon Dioxide 26 mmol/L mmol/L (22-30) Anion Gap 11 mmol/L mmol/L (8-16) BUN 27 mg/dL H D mg/dL (7-17) Creatinine 8.70 mg/dL H mg/dL (0.7-1.0) Estim Creat Clear Calc 7 ml/min ml/min Estimated GFR 5 L (59 - ) Glucose 93 mg/dL mg/dL (65-110) Calcium 10.4 mg/dL H mg/dL (8.4-10.2) Patient hx anesthesia problems: none Family hx anesthesia problems: none Results Review: All pre-operative results and documents have been reviewed as part of the pre-operative evaluation. [facility] Past Medical History Medical History ESRD on hemodialysis Monday History of end stage renal disease History of hypertension History of lupus HTN (hypertension), malignant Lupus Non-adherence to medical treatment Non-adherence to medical treatment Pericardial effusion Pleural cavity effusion Surgical History Surgical History S/P dialysis catheter insertion The patient has a peritoneal catheter and a temper catheter right upper chest. Nonfunctioning AV fistula to the right upper arm Family History Family History Grandparent Diabetes mellitus Social History Social History Social History: The patient has 2 children. She currently lives with her boyfriend's mom. She lives with her boyfriend who works. The patient is unable to work at this time. The patient does not have a durable power deputy attorney general for healthcare. The patient is lifelong nonsmoker. She does not use any marijuana or illicit drugs. Code status full code Smoking status: Never smoker Alcohol intake: never Substance use: never Spiritual care concerns: No Anes - Eval Final PreProcedure Day of Procedure 01/27/21 13:08 Patient weight: normal Heart: regular rate and rhythm Lungs: clear to auscultation Airway: Mallampati scale class II Neurological: alert and oriented Last oral intake: >/= 8 hours ASA classification: IV Emergent: no Anesthetic plan: proceed Anesthesia type and monitoring: general GIVS and standard monitoring Results Review: All pre-operative results and documents have been reviewed as part of the pre-operative evaluation. Informed Consent: The patient's anesthetic plan and its attendant risks and benefits were discussed with the patient/family/POA. Questions were solicited and answers provided to the satisfaction of the patient/family/POA.
--- NOTE | 2021-01-27 13:39 | WPDHPUPDATE1 ---
History and Physical Update Update Date/Time: 01/27/21 13:39 History and Physical has been reviewed, including an updated exam of the patient. There are NO changes in the patient's condition. Risks, benefits, and alternatives have been discussed and questions answered. Patient agrees to proceed with procedure.
[2021-01-27] MEDS: SODIUM CHLORIDE 0.9% IV 500 ML 30 ML IV CONT (13:40)
--- NOTE | 2021-01-27 13:53 | SUR.PREOP ---
1330 peritoneal dialysis catheter to left abd with conorg d&i.
[2021-01-27] MEDS: LIDO 1%/EPINEPHRINE/PF 1:200,000 30 ML VIAL XX (14:16)
--- NOTE | 2021-01-27 15:09 | P.OP_ITS ---
Procedure Note - Detailed Date of Procedure 01/27/21 Pre-op Diagnosis ESRD, peritoneal dialysis catheter not in use Post-op Diagnosis same Procedure Performed Removal peritoneal dialysis catheter Surgeon Herb Zacarias MD [employer] Operator Mendy PETER Anesthesia general and local (0.5% Marcaine) Indications Patient is a 30-year-old woman with end-stage renal disease on hemodialysis. She had a peritoneal dialysis catheter placed over a year ago at an outside hospital. She did not participate in training and has no plans to proceed with peritoneal dialysis. I was asked by her aerodynamic consultant to remove the catheter. She is taken to surgery now for this purpose. Findings Peritoneal dialysis catheter, typical placement and findings. Description of Procedure The patient was taken to surgery and induced into general anesthesia. The abdomen is prepped and draped including the exit site of peritoneal dialysis catheter. Local was infiltrated over the left-sided periumbilical scar were the catheter at been placed originally. This was medial to the exit site. Incision was then made and dissection was carried down through the subcutaneous. The catheter was found and then dissected beyond the rectus abdominis until we found the sleeve that was intramuscular and preperitoneal. We dissected this sleeve free from fibrous adhesions. Cautery was used for hemostasis as needed. Eventually the sleeve was freed completely and I was able to remove the distal half of the catheter once I divided the catheter between the 2 sleeves. I then dissected the subcutaneous sleeve free just under the skin at the exit site. I cut the catheter beyond the skin and was easily able to remove it and the subcutaneous sleeve from the wound. I then closed the anterior rectus fascia over the entry site of the peritoneal dialysis catheter. This was done with 0 Vicryl suture in interrupted fashion. The subcutaneous was closed with interrupted 3 0 Vicryl suture. The skin was loosely approximated with subcuticular interrupted 4 0 Vicryl suture. 4-0 Vicryl was also used to loosely approximate the skin of the exit site. The incision was finally closed with a running 4-0 Monocryl skin suture. The incision was dressed with Exofin surgical adhesive. A Band-Aid was placed on the drain exit site. The patient was awakened and taken to recovery in good condition. Estimated Blood Loss -5 Urine Output 100 Drains No Packing No Pathology none sent Complications No immediate complications Condition stable Disposition PACU
[2021-01-27] MEDS: fentaNYL CITRATE INJ (*CRX) 100 MCG/2 ML VIAL 25 MCG IV PUSH ×2 (15:41→15:43)
--- NOTE | 2021-01-27 16:06 | PC.NURSE ---
Returned from OR per bed. Report received from Mahogany PATEL, pt returned with floor with glue sit and bandaid to [facility], denies pain at this time .
--- NOTE | 2021-01-27 16:19 | PM.DS ---
DS: Admitting Diagnosis Discharge Date 01/27/2021 Admitting Diagnosis Missed hemodialysis. Hyperkalemia. Pericardial effusion. DS: Discharge Diagnosis Discharge Diagnosis (1) Fluid overload: Qualifiers: Hypervolemia type: unspecified Qualified Code(s): E87.70 - Fluid overload, unspecified Code(s): E87.70 - Fluid overload, unspecified Status: Acute Assessment and Plan: Patient with a history of ESRD, on hemodialysis after failing peritoneal dialysis noncompliant due to social issues presenting with pericardial effusion. Patient was scheduled for daily dialysis for 3 days. She had a stable run today without issues which is her 3rd day of dialysis. Plan for removal of PD catheter removal today. Access a right PermCath.Hd 3 hrs, 2 K bath, Qb 400, Qd 800 UF 3 liters. (2) Acute hyperkalemia: Code(s): E87.5 - Hyperkalemia Status: Acute Assessment and Plan: Severe hyperkalemia with potassium at 7 at presentation. Potassium improved down to 4.7 prior to dialysis today. 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 Patient on dialysis Monday. Patient receives dialysis through right chest PermCath. Patient has been non compliant to her prescribed treatment. She has missed dialysis last week and presents with significant hyperkalemia. Currently undergoing dialysis: 3 hrs, 2 K bath, Qb 400, Qd 800, target 3 liters ultrafiltration. Stable run; procedure was well tolerated without issues. (4) Non-adherence to medical treatment: Code(s): Z91.19 - Patient's noncompliance with other medical treatment and regimen Status: Chronic Assessment and Plan: This has been an ongoing issue. 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 Patient is young, with no significant comorbidities include be a candidate for transplantation. Discussed with the patient. Hopefully improved compliance may open the doors to a kidney transplant in the future. (5) HTN (hypertension), benign: Code(s): I10 - Essential (primary) hypertension Status: Acute Assessment and Plan: Blood pressure uncontrolled hypertension at presentation at to 206/122. Improving with blood pressure management. Currently Blood pressure moderately controlled 132/84. Elevated blood pressure measurement likely secondary to fluid overload and expected to improve with regular dialysis. (6) Anemia: Code(s): D64.9 - Anemia, unspecified Status: Acute Assessment and Plan: Anemia normochromic normocytic with hemoglobin stable at 7.4. Patient is already on oral iron supplementation. Iron stores were appropriately replenish. Continue Epogen per Nephrology. (7) Lupus: Code(s): M32.9 - Systemic lupus erythematosus, unspecified Status: Chronic Assessment and Plan: Home medication reviewed. No specific treatment. Likely quiescent. (8) Hyponatremia: Code(s): E87.1 - Hypo-osmolality and hyponatremia Status: Acute Assessment and Plan: Likely reflecting water retention. He improving with a serum sodium of 135. (9) Metabolic acidosis: Code(s): E87.2 - Acidosis Status: Acute Assessment and Plan: Likely improving with renal replacement therapy. No intervention DS: Summary Hospital Course Reason for hospitalization: Shortness of breath. Hospital Course: Please refer to admission H&P. Briefly, this is a 30-year-old female who presents to the ED with worsening shortness of breath over the past few days. She stated that she has end-stage renal disease and on dialysis 2 times per week with Dr[address] Andrews. 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 She went to go for a session
--- NOTE | 2021-01-27 16:30 | PC.NURSE ---
Dr. Zacarias on floor inquired if pt can D/C this evening as she is requesting, MD report okay to d/c order for pain medications and dressings are in, Business Services Sales Representative called Dr. Harvey to inquire if pt can D/C she reports okay to D/C pt needs dialysis in [place] per her routine schedule. Business Services Sales Representative called Dr. Kendall made aware of previous conversations, she reports will begin the d/c process.
== END 2021-01-27 17:14 | disposition home or self-care (01) ==
LOC: ANHED 01-25 04:58 → ANHICU 01-25 09:17 → ANH2MED 01-26 12:51 → ANHICU 01-28 11:05
PROVIDERS: Emergency Medicine; Surgery; Admitting Provider Internal Medicine; Emergency Provider Emergency Medicine; PCP Internal Medicine Nephrology; Visit Provider Internal Medicine
PROC: (CPT 49440; principal; 2021-01-27 13:00)
DX: E87.70 Fluid overload, unspecified (principal); I12.0 Hypertensive chronic kidney disease with stage 5 chronic kidney disease or end stage renal disease; N18.6 End stage renal disease; Z99.2 Dependence on renal dialysis; E87.1 Hypo-osmolality and hyponatremia; E87.5 Hyperkalemia; E87.2 Acidosis; J90 Pleural effusion, not elsewhere classified; I31.3 Pericardial effusion (noninflammatory); R06.02 Shortness of breath; M32.9 Systemic lupus erythematosus, unspecified; D63.1 Anemia in chronic kidney disease; Z91.19 Patient's noncompliance with other medical treatment and regimen
CPT/HCPCS: 49422; 36415; 71046; 71275; 80048; 80053; 81001; 81025; 82728; 82948; 83540; 83550; 83880; 84132; 84466; 84484; 85025; 85380; 87040; 87086; 93005; 93306; 96374; 96375; 99285; A9270; G0257; G0378; G0379; J0360; J0610; J0690; J1100; J1644; J1815; J2250; J2405; J2704; J3010; J7030; J7040; Q5105; Q9967